=== PATIENT | male | born 1955 | race Caucasian/White ===

== ENCOUNTER 2017-03-14 10:39 | Observation (INO) | payer BC ==
[2017-03-14] MEDS ORDERED: ASPIRIN 81 MG TAB.CHEW PO ONE (10:52)
[2017-03-14] MEDS ORDERED: ASPIRIN 81 MG TAB.CHEW ONE (11:13)
[2017-03-14 11:15] LABS: Hemoglobin 15.2 gm/dL (13.5-18.0); Mean Cell Volume 83.7 fl (78-100); Mean Corpuscular Hemoglobin 29.6 pg (27-31); Mean Corpuscular Hgb Conc 35.3 g/dl (32-36); Neutrophil # 5.5 K/mm3 (1.3-6.0); Neutrophil % 54.1 % (42-75.0); Platelet Count 350 K/mm3 (150-450); Red Blood Count 5.14 M/mm3 (4.7-6.0); Red Cell Distribution Width 12.5 % (11.5-14.0); White Blood Count 10.2 K/mm3 (4.0-10.5)
[2017-03-14 11:51] LABS: ALT 64 U/L (19-67); AST 32 U/L (0-48); Albumin * 3.8 gm/dl (3.4-5.0); Alkaline Phosphatase * 70 U/L (50-170); Anion Gap 13.5 mmol/L (6.8-13.8); Bilirubin, Total 0.3 mg/dL (0.0-1.1); Blood Urea Nitrogen 17 mg/dL (6-23); Ca. Corrected For Albumin 8.4 mg/dL (8.4-10.2); Calcium * 8.6 mg/dL (7.9-10.9); Carbon Dioxide 27.6 mmol/L (24-32.6); Chloride 101 mmol/L (97-106); Glucose * 133 mg/dL (70-110); Potassium 3.1 mmol/L (3.4-4.6); Sodium 139 mmol/L (132-142); Total Protein 7.3 gm/dL (6.2-8.2); Troponin I Less than 0.017 ng/ml (0.00-0.10)
--- NOTE | 2017-03-14 12:18 | ERNOTE ---
Chest Pain/Cardiac HPI Date of Service: 03/14/17 Chief Complaint: Chest Pain Time Seen by Provider: 03/14/17 12:04 Source: patient, RN notes reviewed Exam Limitations: no limitations Immunizations: IMMUNIZATION HX Immunizations Up to Date Yes History of Influenza Vaccine No Hx Pneumococcal Vaccination No Allergies/Adverse Reactions: Allergies Penicillins Allergy (Severe, Verified 03/14/17 10:51) Anaphylaxis Sulfa (Sulfonamide Antibiotics) Allergy (Unknown, Verified 03/14/17 10:51) oxytetracycline [From Terramycin] Allergy (Verified 03/14/17 11:35) rabies immune globulin Allergy (Verified 03/14/17 11:35) tetracycline [From Achromycin] Allergy (Verified 03/14/17 11:35) Home Medications: HOME MEDICATIONS Escitalopram Oxalate [Lexapro] 5 mg PO DAILY 03/14/17 [Last Taken Unknown] Hydrochlorothiazide [Hydrodiuril] 25 mg PO DAILY 03/14/17 [Last Taken Unknown] Ofloxacin 10 drop OT BID 03/14/17 [Last Taken Unknown] Simvastatin 40 mg PO HS 03/14/17 [Last Taken Unknown] glipiZIDE [Glucotrol Xl] 5 mg PO DAILY 03/14/17 [Last Taken Unknown] metFORMIN HCL [Metformin HCl] 100 mg PO DAILY 03/14/17 [Last Taken Unknown] Narrative: Arron is a 61 year old male who presents to the ED with chest pain that began over the last 2 days. The pain radiates into the left arm, and he reports that the arm is actually more painful than the chest. The symptoms worsen with activity and seem to be getting more frequent over the past 12 hours. He also reports shortness of breath and diaphoresis with the episodes. He has also been having some dizziness today and has a headache, which is unusual for him. Timing: getting worse, intermittent Severity/Quality: aching Location: central Chest Pain Radiation: arms - Left Activities at Onset: activity Nitro Today/Relief: no nitro taken today Aspirin Treatment Today: no aspirin today Associated Symptoms: Present: headache, dizziness, cough, shortness of breath, diaphoresis. Absent: syncope, fever/chills, palpitations, heartburn, nausea, vomiting, abdominal pain, weakness, back pain, swelling/lump in chest Prior Chest Pain/Cardiac Workup: Reports: stress test - several year ago, normal. Denies: prior chest pain Prior Treatment: Denies: recently seen Review of Systems - Review of Systems Constitutional: Absent: recent illness, fever, chills, decreased activity level EYE: Present: no symptoms reported ENT: Absent: nose congestion, sore throat Respiratory: Present: shortness of breath, cough. Absent: orthopnea Cardiology: Present: chest pain. Absent: palpitations, syncope, edema Gastrointestinal/Abdominal: Absent: nausea, vomiting, abdominal pain Genitourinary: Present: no symptoms reported Musculoskeletal: Absent: muscle pain, joint pain Skin: Absent: rash, lesions, lumps Neurological: Present: headache, dizziness/light-headedness Endocrine: Present: no symptoms reported Hematologic/Lymphatic: Absent: easy bruising, easy bleeding Psych: Absent: anxiety - Patient's Past Medical History Patient History - Medical: Diabetes Type 2 Patient History - Cardiac/Respiratory: Hypertension, Hyperlipidemia, Pneumonia Patient History - Cancer: No Hx of Cancer Patient History - Surgical Procedures: Colonoscopy, T & A Patient History - Other: None - Social History Living Situations: alone Psych History: Hx of Anxiety Smoking Status: Current every day smoker - 5 cigars/day Have you smoked in the past 12 months: Yes Alcohol Use: none Drug Use: none - Immunizations Immunizations Up to Date: Yes Hx Pneumococcal Vaccination: No History of Influenza Vaccine: No Physical Exam - Physical Exam General Appearance: Present: wd/wn, alert, no apparent distress, obese, other - Pleasant Head Exam: Present: normal inspection Eye Exam: Normal inspection: bilateral Neck: Present: normal inspection, nontender, supple, full range of motion Respiratory: Present: no respiratory distress, no accessory muscle use, chest nontender, rhonchi - Mild, scattered Cardiovascular/Chest: Present: regular rate, rhythm, no murmur, normal peripheral pulses Gastrointestinal/Abdominal: Present: nontender, nondistended, soft Extremity Exam: Present: normal inspection, normal range of motion, no edema Neurological Exam: Present: alert, oriented, normal mood/affect, no motor/ sensory deficits Skin Exam: Present: normal color, warm/dry ED Progress - Results and Orders Patient's Lab Results:: I have reviewed the patient's lab results. - Vital Signs Patient's Vital Signs:: I have reviewed the patient's vital signs. Vital Signs: Vital Signs 03/14/17 03/14/17 10:47 11:22 Temperature 36.6 C Pulse Rate 83 83 Respiratory 17 17 Rate Blood Pressure 139/77 129/70 O2 Sat by Pulse 96 94 Oximetry - EKG EKG: NSR, RBBB EKG read: Reviewed by me - X-Ray X-Ray #1 X-Ray: chest Interpretation: Reviewed by me X-ray Comments: Chest PA Lateral * Normal lung volumes. No consolidation or mass. Stable calcified nodule in the left lower lobe. No pneumothorax or pleural fluid collections. Cardiac and mediastinal silhouettes are normal. Trachea is in normal position. Bones show degenerative changes of the spine. IMPRESSION: No focal acute cardiopulmonary finding. Electronically signed by Kathy Galvez M.D.. Kathy Galvez MD - Progress/Reassessment Chief Complaint: Chest Pain Progress:: Unchanged Plan - Plan Plan: Dr. Maxwell contacted and will admit patient to observation status given the suspicious nature of his pain and associated symptoms that worsens with exertion. Patient in agreement with plan. Departure Clinical Impression: Chest pain with moderate risk for cardiac etiology - Departure Disposition: [facility] Condition: Stable
[2017-03-14] MEDS ORDERED: FLU VACC QS2017-18(6MOS UP)/PF 60 MCG/0.5 ML SYRINGE IM ONE (13:49)
[2017-03-14] MEDS ORDERED: ACETAMINOPHEN 325 MG TABLET PO PRN (14:56)
[2017-03-14] MEDS ORDERED: MORPHINE SULFATE 10 MG/ML SYRG IV PRN ×2 (14:57→15:44)
[2017-03-14] MEDS ORDERED: NITROGLYCERIN 0.4 MG/TAB BTL SL PRN (15:44)
--- NOTE | 2017-03-14 15:44 | HP ---
Chief Complaint - Chief Complaint Date of Service: 03/14/17 Time of Service: 15:35 Chief Complaint: chest pain History of Present Illness: Arron Hughes, is a 61-year-old white male, with previous medical history of diabetes mellitus type 2, hyperlipidemia, hypertension, who was admitted on 01/2018 because of chest pain. 2 days prior to admission the patient started having chest pain, left parasternal, 7-10 over 10, lasting for about 1-2 minutes , on and off, radiating to his left arm, increased with exertion. The patient thought that this was just going to be temporarily and since he was going to have an appointment with his primary care physician next week decided to let it go. Today his chest pain started to get worst and and so the patient went to emergency room . In the Emergency room his first set of EKG and troponin were showing normal sinus rhythm with right bundle branch block (which is not new) and a troponin of less than 0.017. The patient was then admitted under our chest pain protocol. - Patient's Past Medical History Patient History - Medical: Diabetes Type 2 Patient History - Cardiac/Respiratory: Hypertension, Hyperlipidemia, Pneumonia Patient History - Cancer: No Hx of Cancer Patient History - Surgical Procedures: Colonoscopy, T & A Patient History - Other: None - Family History Mother Family History - Cardiac/Respiratory: Hyperlipidemia Father Family History - Cancer: Pancreatic - Social History Living Situations: alone Abuse History: No History of abuse Psych History: Hx of Anxiety Smoking Status: Current every day smoker Have you smoked in the past 12 months: Yes Do you dip or chew tobacco: No Patient requests Smoking Cessation Consult: No Initiate information on Smoking Cessation: No Alcohol Use: none Drug Use: none - Immunizations Immunizations Up to Date: Yes Hx Pneumococcal Vaccination: No History of Influenza Vaccine: No Review Of Systems (GEN) - Review of Systems Generalized/Overall Review: Absent: Chills, Fever Respiratory: Absent: Cough, Shortness of Breath Cardiac: Present: Chest Pain. Absent: Edema, Palpitations Abdominal: Absent: Nausea, Vomiting Genitourinary: Absent: Urgency, Frequency Musculoskeletal: Present: Joint Pain Immunizations: IMMUNIZATION HX Immunizations Up to Date Yes History of Influenza Vaccine No Hx Pneumococcal Vaccination No Allergies/Adverse Reactions: Allergies Allergy/AdvReac Type Severity Reaction Status Date / Time Penicillins Allergy Severe Anaphylaxis Verified 03/14/17 10:51 Sulfa (Sulfonamide Allergy Unknown Verified 03/14/17 10:51 Antibiotics) oxytetracycline Allergy Verified 03/14/17 11:35 [From Terramycin] rabies immune globulin Allergy Verified 03/14/17 11:35 tetracycline Allergy Verified 03/14/17 11:35 [From Achromycin] Home Medications: HOME MEDICATIONS Escitalopram Oxalate [Lexapro] 5 mg PO DAILY 03/14/17 [Last Taken Unknown] Hydrochlorothiazide [Hydrodiuril] 25 mg PO DAILY 03/14/17 [Last Taken Unknown] Ofloxacin 10 drop OT BID 03/14/17 [Last Taken Unknown] Simvastatin 40 mg PO HS 03/14/17 [Last Taken Unknown] glipiZIDE [Glucotrol Xl] 5 mg PO DAILY 03/14/17 [Last Taken Unknown] metFORMIN HCL [Metformin HCl] 100 mg PO DAILY 03/14/17 [Last Taken Unknown] Exam - Exam Vital Signs: Vital Signs - Last Taken Temp 36.8 C 03/14/17 13:00 Pulse 73 03/14/17 13:00 Resp 18 03/14/17 13:00 BP 131/68 03/14/17 13:00 Pulse Ox 95 03/14/17 13:00 Constitutional: Present: Alert, Oriented x3, Cooperative ENT Exam: Present: hearing grossly normal Eye Exam: bilateral eye: normal inspection, EOMI Respiratory: Present: normal breath sounds, No rales, No wheezing Cardiovascular/Chest: Present: regular rate, rhythm, no JVD, no murmur, other - positive mild tenderness over left parasternal area Abdomen: Present: Normal bowel sounds, soft, nontender, nondistended Extremity: Present: no pedal edema, no calf tenderness Diagnostic Studies: Laboratory Results WBC 10.2 K/mm3 (4.0-10.5) 03/14/17 11:00 RBC 5.14 M/mm3 (4.7-6.0) 03/14/17 11:00 Hgb 15.2 gm/dL (13.5-18.0) 03/14/17 11:00 Hct 43.0 % (42.0-52.0) 03/14/17 11:00 MCV 83.7 fl (78-100) 03/14/17 11:00 MCH 29.6 pg (27-31) 03/14/17 11:00 MCHC 35.3 g/dl (32-36) 03/14/17 11:00 RDW 12.5 % (11.5-14.0) 03/14/17 11:00 Plt Count 350 K/mm3 (150-450) 03/14/17 11:00 MPV 9.0 fl (6.0-9.5) 03/14/17 11:00 Immature Gran % (Auto) 0.30 % (0.001-0.429) 03/14/17 11:00 Immature Gran # (Auto) 0.03 K/mm3 (0.000-0.0310) 03/14/17 11:00 Neutrophils % 54.1 % (42-75.0) 03/14/17 11:00 Lymphocytes % 29.5 % (20-51) 03/14/17 11:00 Monocytes % 12.3 % (0.0-9) H 03/14/17 11:00 Eosinophils % 3.0 % (0.0-3.0) 03/14/17 11:00 Basophils % 0.8 % (0.0-1.0) 03/14/17 11:00 Nucleated RBC % 0.0 k/mm3 (0-1) 03/14/17 11:00 Neutrophils # 5.5 K/mm3 (1.3-6.0) 03/14/17 11:00 Lymphocytes # 3.0 k/mm3 (1.5-3.5) 03/14/17 11:00 Monocytes # 1.3 k/mm3 (0.0-1.0) H 03/14/17 11:00 Eosinophils # 0.3 k/mm3 (0.0-0.7) 03/14/17 11:00 Absolute Basophils 0.1 k/mm3 (0.0-0.1) 03/14/17 11:00 Sodium 139 mmol/L (132-142) 03/14/17 11:00 Plasma Sodium 140 mmol/L (130-142) 03/14/17 11:00 Potassium 3.1 mmol/L (3.4-4.6) L 03/14/17 11:00 Chloride 101 mmol/L (97-106) 03/14/17 11:00 Carbon Dioxide 27.6 mmol/L (24-32.6) 03/14/17 11:00 Anion Gap 13.5 mmol/L (6.8-13.8) 03/14/17 11:00 BUN 17 mg/dL (6-23) 03/14/17 11:00 Creatinine 0.74 mg/dL (0.4-1.4) 03/14/17 11:00 Est GFR (Non-Af Amer) 115 mL/min (60-130) D 03/14/17 11:00 BUN/Creatinine Ratio 23.0 (9.0-21.6) H 03/14/17 11:00 Random Glucose 133 mg/dL (70-110) H 03/14/17 11:00 Calcium 8.6 mg/dL (7.9-10.9) 03/14/17 11:00 Calcium Adj for Albumin 8.4 mg/dL (8.4-10.2) 03/14/17 11:00 Total Bilirubin 0.3 mg/dL (0.0-1.1) 03/14/17 11:00 AST 32 U/L (0-48) 03/14/17 11:00 ALT 64 U/L (19-67) 03/14/17 11:00 Alkaline Phosphatase 70 U/L (50-170) 03/14/17 11:00 Troponin I Less than 0.017 ng/ml (0.00-0.10) 03/14/17 15:07 Total Protein 7.3 gm/dL (6.2-8.2) 03/14/17 11:00 Albumin 3.8 gm/dl (3.4-5.0) 03/14/17 11:00 Assessment/Plan - Assessment/Plan (1) Chest pain with moderate risk for cardiac etiology Assessment: r/o ACS. If AMI is ruled out , will do a nuclear pharmacologic stress test in the morning due to his increased risk factors. Problem: Acute (2) Hypertension Problem: Chronic Qualifiers: Hypertension type: essential hypertension Qualified Code(s): I10 - Essential (primary) hypertension (3) Hyperlipidemia Problem: Chronic Qualifiers: Hyperlipidemia type: mixed hyperlipidemia Qualified Code(s): E78.2 - Mixed hyperlipidemia (4) Diabetes mellitus type 2 in obese Problem: Chronic
[2017-03-14] MEDS ORDERED: SIMVASTATIN 40 MG TABLET PO SCH (21:00)
[2017-03-15] MEDS ORDERED: glipiZIDE 5 MG TAB.SR.24H PO SCH (07:00)
[2017-03-15] MEDS ORDERED: ASPIRIN 81 MG TAB.CHEW PO SCH (09:00)
[2017-03-15] MEDS ORDERED: ESCITALOPRAM OXALATE 10 MG TAB PO SCH (09:00)
[2017-03-15] MEDS ORDERED: HYDROCHLOROTHIAZIDE 25 MG TABLET PO SCH (09:00)
[2017-03-15 13:08] VITALS: BP 132/61
[2017-03-15] MEDS ORDERED: HEPARIN SODIUM,PORCINE 5,000 UNITS/ML VIAL IV ONE ×2 (13:35→14:30)
[2017-03-15] MEDS ORDERED: HEPARIN SODIUM,PORCINE/D5W 25,000 UNITS/500 ML BAG IV PRN (13:36)
[2017-03-15] MEDS ORDERED: CLOPIDOGREL BISULFATE 75 MG TABLET PO ONE (13:38)
--- NOTE | 2017-03-15 13:41 | DS ---
Transfer Discharge Summary - Diagnosis(s)/Problems (1) Chest pain with moderate risk for cardiac etiology Narrative: Stress test showed a potential area of ischemia in the mid to distal segment of the inferior wall of left ventricle. Unstable Angina. Problem: Acute (2) Hypertension Problem: Chronic (3) Hyperlipidemia Problem: Chronic (4) Diabetes mellitus type 2 in obese Problem: Chronic - Course Description of Stay: Arron Hughes, is a 61-year-old white male, with previous medical history of diabetes mellitus type 2, hyperlipidemia, hypertension, who was admitted on 01/2018 because of chest pain. 2 days prior to admission the patient started having chest pain, left parasternal, 7-10 over 10, lasting for about 1-2 minutes , on and off, radiating to his left arm, increased with exertion. The patient thought that this was just going to be temporary and since he was going to have an appointment with his primary care physician next week decided to let it go. On the day of admission his chest pain started to get worst and and so the patient went to emergency room . In the Emergency room his first set of EKG and troponin were showing normal sinus rhythm with right bundle branch block (which is not new) and a troponin of less than 0.017. The patient was then admitted under our chest pain protocol. His serial EKG and troponin did not change. This morning radha diop , he rates his CP as 2/10. Because of the character of his CP which also radiates to his left arm and his other risks factors he underwent a stress test which showed potential ischemia in the mid to tdistal segment of the inferior wall. I just talked to him about the results and he just got another IV morphine for CP , 6/10. Heparin drip, Pradaxa was added to his ASA for possible Unstable Angina. I called [facility] and talked to Dr. Alba who is accepting the patient. Procedures Performed: none - Results and Findings Results and Findings: Laboratory Results - last 24 hr 03/14/17 03/14/17 15:07 21:42 Troponin I Less than 0.017 Less than 0.017 - Medications Medications: Active Medications Aspirin (Aspirin Chewable) 81 mg PO DAILY [facility] Stop: 04/14/17 09:01 Last Admin: 03/15/17 13:17 Dose: 81 mg Escitalopram Oxalate (Lexapro) 5 mg PO DAILY [facility] Stop: 04/14/17 09:01 Last Admin: 03/15/17 13:18 Dose: 5 mg Glipizide (Glucotrol Xl) 5 mg PO 0700 [facility] Stop: 04/14/17 07:01 Last Admin: 03/15/17 13:18 Dose: 5 mg Hydrochlorothiazide (Hydrodiuril) 25 mg PO DAILY [facility] Stop: 04/14/17 09:01 Last Admin: 03/15/17 13:18 Dose: 25 mg Metformin HCl (Glucophage Xr) 1,000 mg PO DAILY@1800 [facility] Stop: 04/13/17 19:46 Last Admin: 03/14/17 19:45 Dose: 1,000 mg Morphine Sulfate (Morphine Sulfate) 5 mg IV Q1H PRN PRN Reason: Chest Pain Stop: 04/13/17 15:45 Last Admin: 03/15/17 13:23 Dose: 5 mg Simvastatin (Zocor) 40 mg PO HS [facility] Stop: 04/13/17 21:01 Last Admin: 03/14/17 21:30 Dose: 40 mg Discontinued Medications Aspirin (Aspirin Chewable) 324 mg PO ONCE ONE Stop: 03/14/17 10:53 Last Admin: 03/14/17 11:17 Dose: 324 mg Influenza Virus Vaccine Quadrival (Flulaval Quad [id number] Syringe) 60 mcg IM .ONCE ONE Stop: 03/14/17 13:50 Last Admin: 03/14/17 14:40 Dose: 60 mcg Morphine Sulfate (Morphine Sulfate) 5 mg IV Q2H PRN PRN Reason: Chest Pain Stop: 04/13/17 14:58 Last Admin: 03/14/17 15:34 Dose: 5 mg - Disposition Disposition: [facility] Condition: Fair Discharge Date: 03/15/17 Discharge Time: 13:00
[2017-03-15 13:53] LABS: Hematocrit 42.6 % (42.0-52.0); Hemoglobin 14.8 gm/dL (13.5-18.0); Mean Cell Volume 83.7 fl (78-100); Mean Corpuscular Hemoglobin 29.1 pg (27-31); Mean Corpuscular Hgb Conc 34.7 g/dl (32-36); Mean Platelet Volume 9.2 fl (6.0-9.5); Neutrophil # 4.9 K/mm3 (1.3-6.0); Neutrophil % 55.7 % (42-75.0); Platelet Count 336 K/mm3 (150-450); Red Blood Count 5.09 M/mm3 (4.7-6.0); Red Cell Distribution Width 12.5 % (11.5-14.0); White Blood Count 8.8 K/mm3 (4.0-10.5)
[2017-03-15 14:01] LABS: Prothrombin Time (Patient) 9.7 Seconds (9.0-11.0)
[2017-03-15 14:03] LABS: INR 0.97 INR (0.90-1.10); Partial Thrombolplastin Time 25.9 Seconds (24-32)
== END 2017-03-15 15:30 | disposition short-term general hospital (02) ==
LOC: ER 10:39 → MS 12:39
PROVIDERS: ADMIT Internal Medicine; ATTEND Internal Medicine
DX: I10 Essential (primary) hypertension; E78.4 Other hyperlipidemia; Z68.29 Body mass index [BMI] 29.0-29.9, adult; E11.9 Type 2 diabetes mellitus without complications; R07.89 Other chest pain; Z23 Encounter for immunization; F17.200 Nicotine dependence, unspecified, uncomplicated; Z79.4 Long term (current) use of insulin
CPT/HCPCS: 36415; 71046; 78452; 80053; 84484; 85025; 85610; 85730; 90471; 90686; 93005; 93017; 96374; 96375; 96376; 99285; A9502; G0378